=== PATIENT | female | born 1985 | race Caucasian/White ===

== ENCOUNTER 2020-11-05 12:25 | Outpatient (CLI) | payer BC | END 2020-11-05 23:59 | disposition home or self-care (01) | LOC: LAB.N 12:25 | PROVIDERS: ATTEND Physician Assistant Medical | DX: J02.9 Acute pharyngitis, unspecified (principal); Z20.822 Contact with and (suspected) exposure to COVID-19 ==

== ENCOUNTER 2020-11-20 09:15 | Outpatient (CLI) | payer BC | END 2020-11-20 23:59 | disposition home or self-care (01) | LOC: LAB.N 09:15 | PROVIDERS: ATTEND Physician Assistant Medical | DX: M54.5 Low back pain (principal) | CPT/HCPCS: 87086; 87181 ==

== ENCOUNTER 2021-11-04 08:00 | Outpatient (CLI) | payer OTHER, BC ==
--- NOTE | 2021-11-05 09:00 | XRAY Report ---
PROCEDURE: Foot 3 View LT INDICATIONS: CONTUSION OF L FOOT TECHNIQUE: Three views of the foot were acquired. COMPARISON: None FINDINGS: Bones: No fractures or dislocations. No suspicious bony lesions. Soft tissues: No tibiotalar joint effusion. Achilles tendon appears normal. IMPRESSION: Normal exam. Reviewed by: Camacho Overton MD on 11/05/2021 8:59 AM PDT Approved by: Camacho Overton MD on 11/05/2021 8:59 AM PDT Station ID: [id number]
== END 2021-11-04 23:59 | disposition home or self-care (01) ==
LOC: DI.N 08:00
PROVIDERS: ATTEND Physician Assistant Medical
DX: S90.32XA Contusion of left foot, initial encounter (principal)